=== PATIENT | female | born 1935 | race Caucasian/White ===

== ENCOUNTER → 2020-04-20 | Outpatient (CLI) | payer OTHER ==
[~2020-04-20] MED LIST: ASPIRIN81 MG PO; AUGMENTIN 875-1 EACH PO; CALCIUM + D SO1 EACH PO; CATAPRES 0.1MG0.1 MG PO; COQ1050 MG PO; COZAAR 50MG TAB50 MG PO; CRESTOR20 MG PO; FISH OIL 1,0001 EACH PO; GARLIC OIL1000 MG PO; IMDUR ER TAB 3030 MG PO; LEVOCETIRIZINE D5 MG PO; METOPROLOL SUCC25 MG PO; MULTIVITAMINS1 EAC1 PO; PLAVIX 75 MG TA75 MG PO
== END ==
LOC: EXRD 10:11
DX: M19.09 Primary osteoarthritis, other specified site (principal); M85.88 Other specified disorders of bone density and structure, other site
CPT/HCPCS: 77080

== ENCOUNTER → 2020-06-10 | Outpatient (CLI) | payer OTHER ==
[2020-06-10 10:07] LABS: BUN/CREATININE RATIO 32 (0-10)
== END ==
LOC: LAB 08:49
PROVIDERS: Emergency Medicine
DX: I10 Essential (primary) hypertension (principal); E78.2 Mixed hyperlipidemia; E11.65 Type 2 diabetes mellitus with hyperglycemia; R53.83 Other fatigue; E78.49 Other hyperlipidemia
CPT/HCPCS: 36415; 80053; 84443; 84550

== ENCOUNTER → 2020-09-17 | Outpatient (CLI) | payer OTHER ==
[2020-09-17 11:41] LABS: BUN/CREATININE RATIO 32 (0-10)
== END ==
LOC: LAB 09:39
PROVIDERS: Emergency Medicine
DX: I10 Essential (primary) hypertension (principal); E11.9 Type 2 diabetes mellitus without complications; E78.2 Mixed hyperlipidemia
CPT/HCPCS: 36415; 80053

== ENCOUNTER → 2020-09-20 | Outpatient (CLI) | payer OTHER ==
[2020-09-22 12:14] LABS: CHOLESTEROL, TOTAL 127 mg/dL (100-199); HDL SIZE 9.6 nm (>=9.2); HDL-C 55 mg/dL (>39); LARGE VLDL-P 1.7 nmol/L (<=2.7); LDL SIZE 20.7 nm (>20.5); LDL SIZE 20.7 nm (>=20.8); LDL-C 55 mg/dL (0-99); LDL-P 882 nmol/L (<1000); LP-IR SCORE 34 (<=45); SMALL LDL-P 467 nmol/L (<=527); TRIGLYCERIDES 88 mg/dL (0-149); VLDL SIZE 48.3 nm (<=46.6)
== END ==
LOC: LAB 08:53
PROVIDERS: Emergency Medicine
DX: E78.2 Mixed hyperlipidemia (principal); I10 Essential (primary) hypertension; E11.9 Type 2 diabetes mellitus without complications
CPT/HCPCS: 80061; 83704

== ENCOUNTER 2020-09-28 20:53 | Emergency (ER) | payer OTHER ==
[2020-09-28 21:25] LABS: HEMOGLOBIN 15.1 gm/dl (12.3-15.3); RED BLOOD COUNT 5.22 M/UL (4.00-5.10); WHITE BLOOD COUNT 12.3 K/UL (4.5-11.0)
[2020-09-28 21:46] LABS: BUN/CREATININE RATIO 25 (0-10)
== END 2020-09-29 00:40 | disposition short-term general hospital (02) ==
LOC: ER1 20:53
PROVIDERS: Family Medicine
DX: I63.511 Cerebral infarction due to unspecified occlusion or stenosis of right middle cerebral artery (principal); R29.704 NIHSS score 4; E78.5 Hyperlipidemia, unspecified; I48.91 Unspecified atrial fibrillation; Z20.822 Contact with and (suspected) exposure to COVID-19; E66.01 Morbid (severe) obesity due to excess calories; I25.10 Atherosclerotic heart disease of native coronary artery without angina pectoris; E11.9 Type 2 diabetes mellitus without complications; I10 Essential (primary) hypertension; Z90.49 Acquired absence of other specified parts of digestive tract; Z79.84 Long term (current) use of oral hypoglycemic drugs; Z79.899 Other long term (current) drug therapy; Z79.01 Long term (current) use of anticoagulants
CPT/HCPCS: 51702; 70450; 70496; 70498; 71045; 73502; 80053; 82550; 82553; 82962; 83874; 84484; 85025; 85610; 85730; 99285; J2997; Q9967; U0002